=== PATIENT | male | born 1980 | race Caucasian/White ===

== ENCOUNTER 2020-01-23 18:47 | Emergency (ER) | payer MEDICAID ==
[~2020-01-23] VITALS: Ht 175.3 cm; Wt 87.1 kg
[2020-01-23 19:08] VITALS: Ht 175.3 cm; Wt 87.1 kg
[2020-01-23 19:22] VITALS: BP 95/59
== END 2020-01-23 19:22 | disposition home or self-care (01) ==
LOC: ED 18:47
DX: S43.402A Unspecified sprain of left shoulder joint, initial encounter (principal); X58.XXXA Exposure to other specified factors, initial encounter; Y93.89 Activity, other specified; Y92.89 Other specified places as the place of occurrence of the external cause; Y99.8 Other external cause status